=== PATIENT | female | born 1950 | race Caucasian/White ===

== ENCOUNTER 2017-09-16 08:19 | Outpatient (CLI) | payer OTHER ==
[~2017-09-16 08:19] MED LIST: CEFADROXIL500 MG PO; CLONAZEPAM2 MG PO; DICLOFENAC SODI50 MG PO; KLONOPIN1 MG/TAB; LEXAPRO20 MG PO; LEXAPRO5 MG; METFORMIN HCL1000 MG PO; METFORMIN HCL500 M1 PO; MICRONASE5 MG NGT; SYNTHROID50 MCG PO
== END 2017-09-16 08:36 | disposition home or self-care (01) ==
LOC: LAB 08:19
DX: K43.2 Incisional hernia without obstruction or gangrene (principal); Z01.812 Encounter for preprocedural laboratory examination

== ENCOUNTER → 2017-09-30 09:00 | Outpatient (CLI) | payer OTHER ==
[~2017-09-30] VITALS: Ht 152.4 cm; Wt 77.1 kg
[~2017-09-30 09:00] MED LIST changes: +[UNRECOGNIZED DRUG - OTHER]
== END | disposition home or self-care (01) ==
LOC: LAB 09:00 → SURG 09:00 → EDSTATUS 12:00 → SURG 12:00
DX: K43.2 Incisional hernia without obstruction or gangrene (principal); Z01.812 Encounter for preprocedural laboratory examination

== ENCOUNTER 2017-10-01 16:09 | Outpatient (CLI) | payer OTHER | END 2017-10-01 16:20 | disposition home or self-care (01) | LOC: LAB 16:09 | DX: N39.0 Urinary tract infection, site not specified (principal); R82.79 Other abnormal findings on microbiological examination of urine ==

== ENCOUNTER 2017-10-16 16:05 | Outpatient (CLI) | payer OTHER | END 2017-10-16 16:37 | disposition home or self-care (01) | LOC: LAB 16:05 | DX: N39.0 Urinary tract infection, site not specified (principal) ==

== ENCOUNTER 2017-11-18 10:34 | Outpatient (CLI) | payer OTHER | END 2017-11-18 10:39 | disposition home or self-care (01) | LOC: LAB 10:34 | DX: K43.2 Incisional hernia without obstruction or gangrene (principal); Z01.812 Encounter for preprocedural laboratory examination; E11.9 Type 2 diabetes mellitus without complications ==

== ENCOUNTER 2017-11-19 12:12 | Outpatient (CLI) | payer OTHER | END 2017-11-19 12:20 | disposition home or self-care (01) | LOC: LAB 12:12 | DX: N39.0 Urinary tract infection, site not specified (principal); R82.79 Other abnormal findings on microbiological examination of urine ==

== ENCOUNTER 2017-11-28 12:59 | Outpatient (CLI) | payer OTHER | END 2017-11-28 13:04 | disposition home or self-care (01) | LOC: LAB 12:59 | DX: N39.0 Urinary tract infection, site not specified (principal) ==

== ENCOUNTER 2017-12-11 07:00 | Day surgery (SDC) | payer OTHER ==
[~2017-12-11] VITALS: Ht 152.4 cm; Wt 77.1 kg
== END 2017-12-12 08:00 | disposition home or self-care (01) ==
LOC: CIR.AMB 07:00 → SURG 11:58 → O/R 11:58 → CIR.AMB 12-12 08:00 → O/R 12-12 11:52 → SURG 12-12 11:52
DX: K43.2 Incisional hernia without obstruction or gangrene (principal)

== ENCOUNTER 2018-01-20 08:38 | Emergency (ER) | payer OTHER ==
[~2018-01-20] VITALS: Ht 152.4 cm; Wt 76.2 kg
[~2018-01-20 08:38] MED LIST changes: +FORTAMET1000 MG; +GLIPIZIDE10 MG
[2018-01-20] MEDS ORDERED: CLONAZEPAM2 MG (09:02)
[2018-01-20] MEDS ORDERED: ULTRACET (09:02)
[2018-01-20] MEDS ORDERED: TAMS0.4C (09:02)
[2018-01-20] MEDS ORDERED: CEFTIN250 MG/5 M PO (09:03)
== END 2018-01-20 13:27 | disposition home or self-care (01) ==
LOC: ER 08:38
DX: N20.9 Urinary calculus, unspecified (principal)

== ENCOUNTER → 2018-03-20 10:58 | Outpatient (CLI) | payer OTHER ==
[~2018-03-20 10:58] MED LIST changes: +CEFTIN250 MG/5 M PO; +CLONAZEPAM2 MG; +TAMS0.4C; +ULTRACET
== END | disposition home or self-care (01) ==
LOC: LAB 10:58
DX: D64.89 Other specified anemias (principal); D68.8 Other specified coagulation defects; E78.01 Familial hypercholesterolemia; E03.8 Other specified hypothyroidism; R70.0 Elevated erythrocyte sedimentation rate; E11.9 Type 2 diabetes mellitus without complications; R80.8 Other proteinuria; N39.0 Urinary tract infection, site not specified

== ENCOUNTER 2018-04-20 16:22 | Emergency (ER) | payer OTHER ==
[~2018-04-20] VITALS: Ht 152.4 cm; Wt 76.7 kg
[2018-04-20] MEDS ORDERED: ACTOS15 MG (16:42)
[2018-04-20] MEDS ORDERED: LEXAPRO20 MG (16:43)
[2018-04-20] MEDS ORDERED: SYNTHROID50 MCG (16:45)
== END 2018-04-20 20:40 | disposition home or self-care (01) ==
LOC: ER 16:22
DX: M54.89 Other dorsalgia (principal); R06.02 Shortness of breath

== ENCOUNTER 2018-06-26 10:06 | Outpatient (CLI) | payer OTHER ==
[~2018-06-26 10:06] MED LIST changes: +ACTOS15 MG; +LEXAPRO20 MG; +SYNTHROID50 MCG
== END 2018-06-26 10:17 | disposition home or self-care (01) ==
LOC: LAB 10:06
DX: E11.65 Type 2 diabetes mellitus with hyperglycemia (principal); D50.8 Other iron deficiency anemias; R30.0 Dysuria; E78.2 Mixed hyperlipidemia; I10 Essential (primary) hypertension; C73 Malignant neoplasm of thyroid gland; E03.8 Other specified hypothyroidism; B96.29 Other Escherichia coli [E. coli] as the cause of diseases classified elsewhere

== ENCOUNTER 2018-07-02 15:22 | Emergency (ER) | payer OTHER ==
[~2018-07-02] VITALS: Ht 152.4 cm; Wt 77.1 kg
[2018-07-02] MEDS ORDERED: FORTAMET500 MG (15:35)
== END 2018-07-02 21:47 | disposition home or self-care (01) ==
LOC: ER 15:22
DX: K59.09 Other constipation (principal); N20.0 Calculus of kidney; N39.0 Urinary tract infection, site not specified; R10.11 Right upper quadrant pain

== ENCOUNTER 2018-10-20 15:16 | Outpatient (CLI) | payer OTHER ==
[~2018-10-20 15:16] MED LIST changes: +FORTAMET500 MG
== END 2018-10-20 15:19 | disposition home or self-care (01) ==
LOC: MAMO-SONO 15:16 → NUCLEAR 15:16 → MAMO-SONO 15:19
DX: Z12.31 Encounter for screening mammogram for malignant neoplasm of breast (principal); N63.10 Unspecified lump in the right breast, unspecified quadrant; N63.20 Unspecified lump in the left breast, unspecified quadrant; Z87.898 Personal history of other specified conditions; M81.0 Age-related osteoporosis without current pathological fracture

== ENCOUNTER → 2018-10-21 11:26 | Outpatient (CLI) | payer OTHER | END | disposition home or self-care (01) | LOC: LAB 11:26 | DX: E03.8 Other specified hypothyroidism (principal); I10 Essential (primary) hypertension; E11.9 Type 2 diabetes mellitus without complications; E78.00 Pure hypercholesterolemia, unspecified; N39.0 Urinary tract infection, site not specified; E11.69 Type 2 diabetes mellitus with other specified complication; E11.29 Type 2 diabetes mellitus with other diabetic kidney complication; Z12.31 Encounter for screening mammogram for malignant neoplasm of breast; R19.5 Other fecal abnormalities; E55.9 Vitamin D deficiency, unspecified; D64.89 Other specified anemias ==

== ENCOUNTER → 2018-10-27 | Outpatient (CLI) | payer OTHER | END | disposition home or self-care (01) | LOC: MAMO-SONO 14:23 → SONOGRAMA 14:28 | DX: E03.8 Other specified hypothyroidism (principal); J44.1 Chronic obstructive pulmonary disease with (acute) exacerbation; E04.1 Nontoxic single thyroid nodule ==

== ENCOUNTER 2018-12-08 21:14 | Emergency (ER) | payer OTHER ==
[~2018-12-08] VITALS: Ht 152.4 cm; Wt 81.2 kg
== END 2018-12-09 01:43 | disposition home or self-care (01) ==
LOC: ER 21:14
DX: E11.65 Type 2 diabetes mellitus with hyperglycemia (principal); N39.0 Urinary tract infection, site not specified; B96.1 Klebsiella pneumoniae [K. pneumoniae] as the cause of diseases classified elsewhere

== ENCOUNTER 2019-02-14 13:06 | Emergency (ER) | payer OTHER ==
[~2019-02-14] VITALS: Ht 152.4 cm; Wt 81.2 kg
== END 2019-02-14 19:01 | disposition home or self-care (01) ==
LOC: ER 13:06
DX: E11.69 Type 2 diabetes mellitus with other specified complication (principal); R81 Glycosuria; N39.0 Urinary tract infection, site not specified; Z79.84 Long term (current) use of oral hypoglycemic drugs

== ENCOUNTER 2019-02-15 12:22 | Outpatient (CLI) | payer OTHER | END 2019-02-15 12:27 | disposition home or self-care (01) | LOC: LAB 12:22 | DX: E11.9 Type 2 diabetes mellitus without complications (principal); E03.8 Other specified hypothyroidism ==

== ENCOUNTER 2019-03-10 14:28 | Emergency (ER) | payer OTHER ==
[~2019-03-10] VITALS: Ht 152.4 cm; Wt 79.4 kg
== END 2019-03-10 19:25 | disposition home or self-care (01) ==
LOC: ER 14:28
DX: E11.65 Type 2 diabetes mellitus with hyperglycemia (principal); Z79.84 Long term (current) use of oral hypoglycemic drugs

== ENCOUNTER 2019-07-17 12:23 | Outpatient (CLI) | payer OTHER | END 2019-07-17 15:00 | disposition home or self-care (01) | LOC: LAB 12:23 | DX: D64.89 Other specified anemias (principal); I10 Essential (primary) hypertension; E11.9 Type 2 diabetes mellitus without complications; E78.00 Pure hypercholesterolemia, unspecified; N39.0 Urinary tract infection, site not specified; E03.8 Other specified hypothyroidism; E55.9 Vitamin D deficiency, unspecified; R80.8 Other proteinuria; R19.5 Other fecal abnormalities ==

== ENCOUNTER 2019-07-18 13:15 | Outpatient (CLI) | payer OTHER | END 2019-07-18 15:00 | disposition home or self-care (01) | LOC: LAB 13:15 | DX: D64.89 Other specified anemias (principal); E11.9 Type 2 diabetes mellitus without complications; I10 Essential (primary) hypertension; N39.0 Urinary tract infection, site not specified; E03.8 Other specified hypothyroidism; E55.9 Vitamin D deficiency, unspecified; R80.8 Other proteinuria; R19.5 Other fecal abnormalities ==

== ENCOUNTER 2019-11-30 12:29 | Outpatient (CLI) | payer OTHER | END 2019-11-30 12:52 | disposition home or self-care (01) | LOC: LAB 12:29 | PROVIDERS: ATTEND Internal Medicine | DX: D64.89 Other specified anemias (principal); I10 Essential (primary) hypertension; E11.9 Type 2 diabetes mellitus without complications; E78.00 Pure hypercholesterolemia, unspecified; N39.0 Urinary tract infection, site not specified; E03.8 Other specified hypothyroidism; E55.9 Vitamin D deficiency, unspecified; R80.8 Other proteinuria; Z12.11 Encounter for screening for malignant neoplasm of colon; R19.5 Other fecal abnormalities ==

== ENCOUNTER 2020-03-13 16:00 | Outpatient (CLI) | payer OTHER | END 2020-03-13 16:18 | disposition home or self-care (01) | LOC: RAD 16:00 | PROVIDERS: ATTEND Internal Medicine | DX: M54.5 Low back pain (principal); N20.0 Calculus of kidney ==

== ENCOUNTER 2020-03-21 13:33 | Outpatient (CLI) | payer OTHER | END 2020-03-21 14:25 | disposition home or self-care (01) | LOC: MRI 13:33 | PROVIDERS: ATTEND Internal Medicine | DX: M47.897 Other spondylosis, lumbosacral region (principal); M54.5 Low back pain | CPT/HCPCS: 72148 ==

== ENCOUNTER → 2020-06-28 16:33 | Outpatient (CLI) | payer OTHER | END | disposition home or self-care (01) | LOC: RAD 16:33 → LAB 16:33 | PROVIDERS: ATTEND Physical Medicine & Rehabilitation | DX: M43.8X4 Other specified deforming dorsopathies, thoracic region (principal); M54.2 Cervicalgia; M54.6 Pain in thoracic spine; M25.511 Pain in right shoulder; M25.512 Pain in left shoulder ==

== ENCOUNTER 2020-07-05 14:01 | Outpatient (CLI) | payer OTHER | END 2020-07-05 14:08 | disposition home or self-care (01) | LOC: LAB 14:01 | PROVIDERS: ATTEND Internal Medicine | DX: D64.89 Other specified anemias (principal); I10 Essential (primary) hypertension; E78.00 Pure hypercholesterolemia, unspecified; N39.0 Urinary tract infection, site not specified; E03.8 Other specified hypothyroidism; E11.69 Type 2 diabetes mellitus with other specified complication; R19.5 Other fecal abnormalities; E55.9 Vitamin D deficiency, unspecified ==

== ENCOUNTER 2020-07-06 14:30 | Outpatient (CLI) | payer OTHER | END 2020-07-06 14:34 | disposition home or self-care (01) | LOC: SONOGRAMA 14:30 | PROVIDERS: ATTEND Physical Medicine & Rehabilitation | DX: M25.511 Pain in right shoulder (principal) ==

== ENCOUNTER 2020-07-07 14:29 | Outpatient (CLI) | payer OTHER | END 2020-07-07 14:35 | disposition home or self-care (01) | LOC: LAB 14:29 | PROVIDERS: ATTEND Internal Medicine | DX: D64.89 Other specified anemias (principal); I10 Essential (primary) hypertension; E78.00 Pure hypercholesterolemia, unspecified; N39.0 Urinary tract infection, site not specified; E03.8 Other specified hypothyroidism; E11.69 Type 2 diabetes mellitus with other specified complication; R80.8 Other proteinuria; E55.9 Vitamin D deficiency, unspecified; R19.5 Other fecal abnormalities ==

== ENCOUNTER 2020-11-03 14:23 | Outpatient (CLI) | payer OTHER | END 2020-11-03 14:30 | disposition home or self-care (01) | LOC: MAMO-SONO 14:23 | PROVIDERS: ATTEND Internal Medicine | DX: Z12.31 Encounter for screening mammogram for malignant neoplasm of breast (principal) ==

== ENCOUNTER → 2020-11-07 13:49 | Outpatient (CLI) | payer OTHER ==
[~2020-11-07 13:49] MED LIST changes: +SIMVASTATIN5 MG
== END | disposition home or self-care (01) ==
LOC: LAB 13:49
PROVIDERS: ATTEND Internal Medicine
DX: D64.9 Anemia, unspecified (principal); E11.9 Type 2 diabetes mellitus without complications; N39.0 Urinary tract infection, site not specified; E03.8 Other specified hypothyroidism; E78.00 Pure hypercholesterolemia, unspecified

== ENCOUNTER 2021-01-26 19:13 | Emergency (ER) | payer OTHER ==
[~2021-01-26] VITALS: Ht 152.4 cm; Wt 74.8 kg
[~2021-01-26 19:13] MED LIST changes: -SIMVASTATIN5 MG
[2021-01-26] MEDS ORDERED: SIMVASTATIN5 MG (19:31)
== END 2021-01-26 22:55 | disposition home or self-care (01) ==
LOC: ER 19:13
DX: N39.0 Urinary tract infection, site not specified (principal); E86.0 Dehydration; R53.1 Weakness; F06.4 Anxiety disorder due to known physiological condition

== ENCOUNTER 2021-02-06 08:31 | Outpatient (CLI) | payer OTHER ==
[~2021-02-06 08:31] MED LIST changes: +SIMVASTATIN5 MG
== END 2021-02-06 08:34 | disposition home or self-care (01) ==
LOC: LAB 08:31
PROVIDERS: ATTEND Internal Medicine
DX: N39.0 Urinary tract infection, site not specified (principal); E11.69 Type 2 diabetes mellitus with other specified complication

== ENCOUNTER 2021-03-01 16:53 | Emergency (ER) | payer OTHER ==
[~2021-03-01] VITALS: Ht 152.4 cm; Wt 72.6 kg
== END 2021-03-01 22:26 | disposition home or self-care (01) ==
LOC: ER 16:53
DX: S90.31XA Contusion of right foot, initial encounter (principal); W18.09XA Striking against other object with subsequent fall, initial encounter; Y93.89 Activity, other specified; Y92.098 Other place in other non-institutional residence as the place of occurrence of the external cause; Y99.8 Other external cause status; E11.65 Type 2 diabetes mellitus with hyperglycemia

== ENCOUNTER 2021-03-11 16:59 | Emergency (ER) | payer OTHER ==
[~2021-03-11] VITALS: Ht 152.4 cm; Wt 74.8 kg
[2021-03-11] MEDS ORDERED: JANUMET 50-5001 EACH (17:28)
== END 2021-03-11 20:40 | disposition home or self-care (01) ==
LOC: ER 16:59
DX: E11.65 Type 2 diabetes mellitus with hyperglycemia (principal)

== ENCOUNTER 2021-07-03 14:34 | Outpatient (CLI) | payer OTHER ==
[~2021-07-03 14:34] MED LIST changes: +JANUMET 50-5001 EACH
== END 2021-07-03 14:42 | disposition home or self-care (01) ==
LOC: LAB 14:34
PROVIDERS: ATTEND Internal Medicine
DX: E03.8 Other specified hypothyroidism (principal); N18.1 Chronic kidney disease, stage 1; E11.69 Type 2 diabetes mellitus with other specified complication; E78.00 Pure hypercholesterolemia, unspecified; D50.0 Iron deficiency anemia secondary to blood loss (chronic); N39.0 Urinary tract infection, site not specified

== ENCOUNTER 2021-09-06 19:35 | Emergency (ER) | payer OTHER ==
[~2021-09-06] VITALS: Ht 152.4 cm; Wt 72.1 kg
== END 2021-09-06 23:17 | disposition home or self-care (01) ==
LOC: ER 19:35
DX: R10.31 Right lower quadrant pain (principal); E11.9 Type 2 diabetes mellitus without complications; Z79.84 Long term (current) use of oral hypoglycemic drugs; Z88.6 Allergy status to analgesic agent

== ENCOUNTER 2021-12-25 08:59 | Outpatient (CLI) | payer OTHER | END 2021-12-25 09:00 | disposition home or self-care (01) | LOC: LAB 08:59 | PROVIDERS: ATTEND Internal Medicine | DX: E11.69 Type 2 diabetes mellitus with other specified complication (principal); E78.00 Pure hypercholesterolemia, unspecified; E03.8 Other specified hypothyroidism; D50.0 Iron deficiency anemia secondary to blood loss (chronic); N39.0 Urinary tract infection, site not specified; N18.2 Chronic kidney disease, stage 2 (mild) ==

== ENCOUNTER 2022-01-01 15:16 | Outpatient (CLI) | payer OTHER | END 2022-01-01 15:30 | disposition home or self-care (01) | LOC: LAB 15:16 | PROVIDERS: ATTEND Internal Medicine | DX: E11.69 Type 2 diabetes mellitus with other specified complication (principal); E78.00 Pure hypercholesterolemia, unspecified; D50.0 Iron deficiency anemia secondary to blood loss (chronic); N39.0 Urinary tract infection, site not specified; N18.2 Chronic kidney disease, stage 2 (mild) ==

== ENCOUNTER 2022-03-03 15:31 | Emergency (ER) | payer OTHER ==
[~2022-03-03] VITALS: Ht 152.4 cm; Wt 77.1 kg
[2022-03-03] MEDS ORDERED: JARDIANCE10 MG (15:58)
== END 2022-03-03 20:50 | disposition home or self-care (01) ==
LOC: ER 15:31
DX: M54.50 Low back pain, unspecified (principal); Z88.6 Allergy status to analgesic agent; Z87.442 Personal history of urinary calculi

== ENCOUNTER 2022-08-07 12:13 | Outpatient (CLI) | payer OTHER ==
[~2022-08-07 12:13] MED LIST changes: +JARDIANCE10 MG
== END 2022-08-07 14:17 | disposition home or self-care (01) ==
LOC: LAB 12:13
PROVIDERS: ATTEND Internal Medicine
DX: D64.9 Anemia, unspecified (principal); E11.9 Type 2 diabetes mellitus without complications; E78.00 Pure hypercholesterolemia, unspecified; N39.0 Urinary tract infection, site not specified; E03.8 Other specified hypothyroidism; R19.5 Other fecal abnormalities; Z12.11 Encounter for screening for malignant neoplasm of colon; E55.9 Vitamin D deficiency, unspecified; E53.8 Deficiency of other specified B group vitamins; R41.2 Retrograde amnesia; R10.9 Unspecified abdominal pain; R41.3 Other amnesia; N18.9 Chronic kidney disease, unspecified

== ENCOUNTER 2022-09-26 14:39 | Outpatient (CLI) | payer OTHER | END 2022-09-26 14:57 | disposition home or self-care (01) | LOC: MAMO-SONO 14:39 | PROVIDERS: ATTEND Internal Medicine | DX: Z12.31 Encounter for screening mammogram for malignant neoplasm of breast (principal); N64.4 Mastodynia; N60.11 Diffuse cystic mastopathy of right breast ==

== ENCOUNTER 2022-11-21 11:29 | Outpatient (CLI) | payer OTHER | END 2022-11-21 11:34 | disposition home or self-care (01) | LOC: LAB 11:29 | PROVIDERS: ATTEND Internal Medicine | DX: D64.9 Anemia, unspecified (principal); E11.9 Type 2 diabetes mellitus without complications; E78.00 Pure hypercholesterolemia, unspecified; N39.0 Urinary tract infection, site not specified; E03.8 Other specified hypothyroidism ==

== ENCOUNTER 2023-02-04 18:05 | Emergency (ER) | payer OTHER ==
[~2023-02-04] VITALS: Ht 152.4 cm; Wt 62.1 kg
[2023-02-05] MEDS ORDERED: ONDANSETRON ODT4 MG PO (03:55)
[2023-02-05] MEDS ORDERED: PROTONIX40 MG PO (03:55)
[2023-02-05] MEDS ORDERED: LEVSIN/SL0.125 MG SL (03:55)
[2023-02-05] MEDS ORDERED: PEPCID40 MG PO (03:55)
== END 2023-02-05 04:04 ==
LOC: ER 18:05
PROVIDERS: Emergency Medicine
DX: K52.9 Noninfective gastroenteritis and colitis, unspecified (principal); E11.9 Type 2 diabetes mellitus without complications; Z79.84 Long term (current) use of oral hypoglycemic drugs; Z88.6 Allergy status to analgesic agent; E03.9 Hypothyroidism, unspecified; E78.00 Pure hypercholesterolemia, unspecified; K29.70 Gastritis, unspecified, without bleeding
CPT/HCPCS: 36415; 96365; 96366; 99284; J3490; J7030

== ENCOUNTER 2023-05-06 14:18 | Outpatient (CLI) | payer OTHER ==
[~2023-05-06 14:18] MED LIST changes: +LEVSIN/SL0.125 MG SL; +ONDANSETRON ODT4 MG PO; +PEPCID40 MG PO; +PROTONIX40 MG PO
[2023-05-06 15:15] LABS: URINE APPEARANCE Clear; URINE BILIRRUBIN Negative (NEGATIVE); URINE BLOOD Negative; URINE COLOR Yellow; URINE LEUKOCYTE Negative; URINE NITRATE Negative; URINE PROTEIN Negative (NEGATIVE)
[2023-05-06 15:17] LABS: HEMATOCRIT 39.7 % (36.0-45.00); HEMOGLOBIN 13.3 g/dL (12.0-15.00); MEAN CELL VOLUME 87.8 fL (80.00-100.00); MEAN CORPUSCULAR HEMOGLOBIN 29.3 pg (27.00-32.0); MEAN CORPUSCULAR HGB CONC 33.4 g/dl (32.0-36.0); PLATELET COUNT 232 K/uL (150-450); RED BLOOD COUNT 4.53 M/uL (4.00-6.00); RED CELL DISTRIBUTION WIDTH 13.5 % (11.5-14.5)
[2023-05-06 15:19] LABS: URINE BACTERIA 347.7 uL (0.0-1933); URINE EPITHELIAL CELLS 51.6 uL (0.0-38.8); URINE WBC 130.7 uL (0.0-23.2)
[2023-05-06 15:44] LABS: ALBUMIN 3.5 gm/dL (3.4-5.0); BILIRUBIN TOTAL 0.4 mg/dL (0.3-1.2); CALCIUM 9.1 mg/dL (8.5-10.1); CHOL HDL RATIO 2.2 (0-5.0); CREATININE SERUM 0.66 mg/dL (0.55-1.02); GFR 87.79; GLOBULINA 3.3 G/DL (2.4-3.5); POTASSIUM 4.06 mEq/L (3.5-5.1); TOTAL PROTEIN 6.8 gm/dL (6.4-8.2)
[2023-05-06 15:44] LABS: URINE GLUCOSE >=1000 MG/DL (NEGATIVE)
== END 2023-05-06 15:00 | disposition home or self-care (01) ==
LOC: LAB 14:18
PROVIDERS: ATTEND Internal Medicine
DX: D64.9 Anemia, unspecified (principal); E11.9 Type 2 diabetes mellitus without complications; E78.00 Pure hypercholesterolemia, unspecified; N39.0 Urinary tract infection, site not specified; N18.31 Chronic kidney disease, stage 3a

== ENCOUNTER → 2023-07-02 12:16 | Outpatient (CLI) | payer OTHER ==
[2023-07-02 13:12] LABS: HEMOGLOBIN 14.3 g/dL (12.0-15.00); MEAN CELL VOLUME 87.2 fL (80.00-100.00); MEAN CORPUSCULAR HEMOGLOBIN 30.5 pg (27.00-32.0); MEAN CORPUSCULAR HGB CONC 34.9 g/dl (32.0-36.0); PLATELET COUNT 259 K/uL (150-450); RED CELL DISTRIBUTION WIDTH 13.6 % (11.5-14.5)
[2023-07-02 13:21] LABS: PH,URINE 5.5 (5.0-8.0); URINE APPEARANCE Clear; URINE BILIRRUBIN Negative (NEGATIVE); URINE BLOOD Negative; URINE COLOR Yellow; URINE LEUKOCYTE Small; URINE NITRATE Negative; URINE PROTEIN Negative (NEGATIVE)
[2023-07-02 13:29] LABS: URINE BACTERIA 40.3 uL (0.0-1933); URINE EPITHELIAL CELLS 7.4 uL (0.0-38.8); URINE RBC 44.1 uL (0.0-20.8); URINE WBC 22.4 uL (0.0-23.2)
[2023-07-02 13:44] LABS: ALBUMIN 3.8 gm/dL (3.4-5.0); BILIRUBIN TOTAL 0.48 mg/dL (0.3-1.2); CALCIUM 9.5 mg/dL (8.5-10.1); CREATININE SERUM 0.76 mg/dL (0.55-1.02); GFR 74.39; GLOBULINA 3.3 G/DL (2.4-3.5); POTASSIUM 3.97 mEq/L (3.5-5.1); TOTAL PROTEIN 7.1 gm/dL (6.4-8.2)
[2023-07-02 14:01] LABS: URINE GLUCOSE >=1000 MG/DL (NEGATIVE)
[2023-07-02 14:04] LABS: TSH 3.61 uIU/mL (0.358-3.74)
[2023-07-02 14:50] LABS: ob NEGATIVE (NEGATIVE)
== END | disposition home or self-care (01) ==
LOC: LAB 12:16
PROVIDERS: ATTEND Internal Medicine
DX: D64.9 Anemia, unspecified (principal); E11.9 Type 2 diabetes mellitus without complications; E78.00 Pure hypercholesterolemia, unspecified; N39.0 Urinary tract infection, site not specified; Z12.11 Encounter for screening for malignant neoplasm of colon; E55.9 Vitamin D deficiency, unspecified

== ENCOUNTER 2023-08-13 13:03 | Outpatient (CLI) | payer OTHER | END 2023-08-13 13:07 | disposition home or self-care (01) | LOC: SONOGRAMA 13:03 | PROVIDERS: ATTEND Internal Medicine Gastroenterology | DX: R10.13 Epigastric pain (principal) ==

== ENCOUNTER → 2024-02-20 | Emergency (ER) | payer OTHER ==
[~2024-02-20] VITALS: Ht 152.4 cm; Wt 61.2 kg
[2024-02-20 14:50] LABS: HEMATOCRIT 39.7 % (36.0-45.00); HEMOGLOBIN 13.6 g/dL (12.0-15.00); MEAN CELL VOLUME 85.9 fL (80.00-100.00); MEAN CORPUSCULAR HEMOGLOBIN 29.3 pg (27.00-32.0); MEAN CORPUSCULAR HGB CONC 34.1 g/dl (32.0-36.0); PLATELET COUNT 238 K/uL (150-450); RED BLOOD COUNT 4.62 M/uL (4.00-6.00); RED CELL DISTRIBUTION WIDTH 13.6 % (11.5-14.5)
[2024-02-20 15:11] LABS: CALCIUM 9.8 mg/dL (8.5-10.1); CREATININE SERUM 0.93 mg/dL (0.55-1.02); GFR 58.93; POTASSIUM 4.02 mEq/L (3.5-5.1)
[2024-02-20 15:16] LABS: URINE APPEARANCE Clear; URINE BILIRRUBIN Negative (NEGATIVE); URINE BLOOD Negative; URINE COLOR Yellow; URINE KETONE Negative (NEGATIVE); URINE LEUKOCYTE Negative; URINE NITRATE Negative; URINE PROTEIN Negative (NEGATIVE); URINE UROBILINOGEN 0.2 E.U./dl
[2024-02-20 15:19] LABS: URINE BACTERIA 132.2 uL (0.0-1933); URINE RBC 5.9 uL (0.0-20.8); URINE WBC 19.4 uL (0.0-23.2)
[2024-02-20 15:21] LABS: URINE GLUCOSE >=1000 MG/DL (NEGATIVE)
== END | disposition left against medical advice (07) ==
LOC: ER 13:23
PROVIDERS: General Practice
DX: G44.84 Primary exertional headache (principal); T67.02XA Exertional heatstroke, initial encounter; Z88.6 Allergy status to analgesic agent; R53.1 Weakness; E11.9 Type 2 diabetes mellitus without complications; Z79.84 Long term (current) use of oral hypoglycemic drugs

== ENCOUNTER 2024-03-01 10:51 | Outpatient (CLI) | payer OTHER ==
[2024-03-01 11:53] LABS: HEMATOCRIT 41.3 % (36.0-45.00); MEAN CELL VOLUME 86.5 fL (80.00-100.00); MEAN CORPUSCULAR HEMOGLOBIN 29.3 pg (27.00-32.0); MEAN CORPUSCULAR HGB CONC 33.9 g/dl (32.0-36.0); PLATELET COUNT 246 K/uL (150-450); RED BLOOD COUNT 4.77 M/uL (4.00-6.00)
[2024-03-01 12:29] LABS: BILIRUBIN TOTAL 0.52 mg/dL (0.3-1.2); CALCIUM 9.7 mg/dL (8.5-10.1); CREATININE SERUM 0.84 mg/dL (0.55-1.02); GFR 66.28; GLOBULINA 3.6 G/DL (2.4-3.5); POTASSIUM 4.5 mEq/L (3.5-5.1); TOTAL PROTEIN 7.6 gm/dL (6.4-8.2)
[2024-03-01 12:34] LABS: INR 1.07; PARTIAL THROMBOPLASTIN TIME 29.3 SECONDS (22.0-34.0); PROTHROMBIN TIME 11.6 SECONDS (9.0-11.5)
== END 2024-03-01 11:00 | disposition home or self-care (01) ==
LOC: RAD 10:51
PROVIDERS: ATTEND Ophthalmology
DX: Z01.811 Encounter for preprocedural respiratory examination (principal); H25.013 Cortical age-related cataract, bilateral; I10 Essential (primary) hypertension

== ENCOUNTER 2024-05-13 16:06 | Outpatient (CLI) | payer OTHER | END 2024-05-13 16:15 | disposition home or self-care (01) | LOC: RAD 16:06 | PROVIDERS: ATTEND Physical Medicine & Rehabilitation | DX: M54.2 Cervicalgia (principal); M54.6 Pain in thoracic spine ==

== ENCOUNTER 2024-07-08 11:56 | Outpatient (CLI) | payer OTHER ==
[2024-07-08 12:34] LABS: HEMATOCRIT 40.6 % (36.0-45.00); HEMOGLOBIN 13.6 g/dL (12.0-15.00); MEAN CELL VOLUME 87.1 fL (80.00-100.00); MEAN CORPUSCULAR HEMOGLOBIN 29.2 pg (27.00-32.0); MEAN CORPUSCULAR HGB CONC 33.5 g/dl (32.0-36.0); PLATELET COUNT 252 K/uL (150-450); RED BLOOD COUNT 4.66 M/uL (4.00-6.00); RED CELL DISTRIBUTION WIDTH 13.6 % (11.5-14.5)
[2024-07-08 13:27] LABS: ALBUMIN 3.5 gm/dL (3.4-5.0); BILIRUBIN TOTAL 0.36 mg/dL (0.3-1.2); CALCIUM 9.7 mg/dL (8.5-10.1); CHOL HDL RATIO 2.3 (0-5.0); CREATININE SERUM 0.76 mg/dL (0.55-1.02); GFR 74.19; GLOBULINA 3.5 G/DL (2.4-3.5); POTASSIUM 4.31 mEq/L (3.5-5.1)
[2024-07-08 13:33] LABS: TSH 3.16 uIU/mL (0.358-3.74)
[2024-07-08 13:56] LABS: URINE APPEARANCE Turbid; URINE BILIRRUBIN Negative (NEGATIVE); URINE BLOOD Negative; URINE COLOR Yellow; URINE KETONE Negative (NEGATIVE); URINE LEUKOCYTE Trace; URINE NITRATE Negative; URINE PROTEIN Negative (NEGATIVE); URINE UROBILINOGEN 0.2 E.U./dl
[2024-07-08 14:01] LABS: URINE BACTERIA 294.9 uL (0.0-1933); URINE EPITHELIAL CELLS 74.8 uL (0.0-38.8); URINE RBC 19.4 uL (0.0-20.8); URINE WBC 80.4 uL (0.0-23.2)
[2024-07-08 14:03] LABS: ob NEGATIVE (NEGATIVE)
[2024-07-08 14:29] LABS: URINE CAST 0.58 uL (0.0-1.40); URINE GLUCOSE >=1000 MG/DL (NEGATIVE)
[2024-07-08 14:33] LABS: URINE YEAST FEW /hpf
== END 2024-07-08 11:57 | disposition home or self-care (01) ==
LOC: LAB 11:56
PROVIDERS: ATTEND Internal Medicine
DX: D64.9 Anemia, unspecified (principal); E11.9 Type 2 diabetes mellitus without complications; E78.00 Pure hypercholesterolemia, unspecified; N39.0 Urinary tract infection, site not specified; E03.8 Other specified hypothyroidism; N18.31 Chronic kidney disease, stage 3a; Z12.11 Encounter for screening for malignant neoplasm of colon; E55.9 Vitamin D deficiency, unspecified

== ENCOUNTER 2024-07-14 13:29 | Outpatient (CLI) | payer OTHER | END 2024-07-14 13:30 | disposition home or self-care (01) | LOC: LAB 13:29 | PROVIDERS: ATTEND Internal Medicine | DX: N39.0 Urinary tract infection, site not specified (principal) ==

== ENCOUNTER 2024-07-14 13:57 | Outpatient (CLI) | payer OTHER | END 2024-07-14 13:59 | disposition home or self-care (01) | LOC: RAD 13:57 | PROVIDERS: ATTEND Internal Medicine | DX: M15.0 Primary generalized (osteo)arthritis (principal) ==

== ENCOUNTER 2024-08-06 12:48 | Outpatient (CLI) | payer OTHER | END 2024-08-06 12:49 | disposition home or self-care (01) | LOC: NUCLEAR 12:48 | PROVIDERS: ATTEND Physical Medicine & Rehabilitation | DX: M81.0 Age-related osteoporosis without current pathological fracture (principal) ==

== ENCOUNTER 2024-09-10 13:07 | Outpatient (CLI) | payer OTHER | END 2024-09-10 13:10 | disposition home or self-care (01) | LOC: RAD 13:07 | PROVIDERS: ATTEND Physical Medicine & Rehabilitation | DX: M17.11 Unilateral primary osteoarthritis, right knee (principal); M17.12 Unilateral primary osteoarthritis, left knee ==

== ENCOUNTER 2024-12-14 15:08 | Outpatient (CLI) | payer OTHER ==
[2024-12-14 15:42] LABS: BASO % 0.8 % (0.1-1.2); EOS # 0.16 (0.04-0.54); EOS % 2.2 % (0.7-7.0); LYMPH # 2.55 (1.18-3.74); LYMPH % 35.8 % (19.3-53.1); MEAN PLATELET VOLUME 9.80 fl (9.4-12.4); MONO # 0.50 (0.24-0.82); MONO % 7.0 % (4.7-12.5); NEUT # 3.84 (1.56-6.13); NEUT % 53.9 % (34.0-71.1); RED CELL DISTRIBUTION WIDTH 12.6 % (11.6-14.4)
[2024-12-14 16:32] LABS: ALT/SGPT 21.0 U/L (12-78); AST/SGOT 16.0 U/L (15-37); BILIRUBIN TOTAL 0.47 mg/dL (0.3-1.2); BUN CREA RATIO 19.0 (7.0-25.0); CHOL HDL RATIO 2.3 (0-5.0); CREATININE SERUM 0.75 mg/dL (0.55-1.02); GFR 75.33; GLOBULINA 3.2 G/DL (2.4-3.5); GLUCOSE FASTING 141.0 mg/dL (65-100); HDL 62.0 mg/dl (40-60); LDL 42.0 mg/dl (0-130); OSMOLALITY SERUM 284.0 MOSM/KG (275-295); T4 FREE 0.93 NG/ML (0.76-1.46); VLDL 39.0 (0-39)
[2024-12-14 16:41] LABS: URINE APPEARANCE Clear; URINE BILIRRUBIN Negative (NEGATIVE); URINE BLOOD Negative; URINE COLOR Yellow; URINE KETONE Negative (NEGATIVE); URINE LEUKOCYTE Trace; URINE NITRATE Negative; URINE PROTEIN Negative (NEGATIVE); URINE UROBILINOGEN 0.2 E.U./dl
[2024-12-14 16:45] LABS: URINE BACTERIA 470.4 uL (0.0-1933); URINE EPITHELIAL CELLS 19.8 uL (0.0-38.8); URINE RBC 13.1 uL (0.0-20.8); URINE WBC 40.7 uL (0.0-23.2)
[2024-12-14 16:46] LABS: TSH 8.12 uIU/mL (0.358-3.74)
[2024-12-14 16:49] LABS: URINE CAST 0.14 uL (0.0-1.40); URINE GLUCOSE >=1000 MG/DL (NEGATIVE)
== END 2024-12-14 15:10 | disposition home or self-care (01) ==
LOC: LAB 15:08
PROVIDERS: ATTEND Internal Medicine
DX: E11.65 Type 2 diabetes mellitus with hyperglycemia (principal); E03.8 Other specified hypothyroidism; E78.5 Hyperlipidemia, unspecified; I10 Essential (primary) hypertension; N30.91 Cystitis, unspecified with hematuria

== ENCOUNTER 2025-05-31 12:28 | Outpatient (CLI) | payer OTHER ==
[2025-05-31 13:07] LABS: URINE APPEARANCE Clear; URINE BILIRRUBIN Negative (NEGATIVE); URINE BLOOD Trace; URINE COLOR Yellow; URINE KETONE Trace (NEGATIVE); URINE LEUKOCYTE Trace; URINE NITRATE Negative; URINE PROTEIN Negative (NEGATIVE); URINE UROBILINOGEN 0.2 E.U./dl
[2025-05-31 13:08] LABS: BASO % 0.5 % (0.1-1.2); EOS # 0.13 (0.04-0.54); EOS % 1.7 % (0.7-7.0); LYMPH # 2.39 (1.18-3.74); LYMPH % 30.6 % (19.3-53.1); MEAN PLATELET VOLUME 9.80 fl (9.4-12.4); MONO # 0.60 (0.24-0.82); MONO % 7.7 % (4.7-12.5); NEUT # 4.64 (1.56-6.13); NEUT % 59.2 % (34.0-71.1); RED CELL DISTRIBUTION WIDTH 12.5 % (11.6-14.4)
[2025-05-31 13:10] LABS: URINE BACTERIA 1237.7 uL (0.0-1933); URINE EPITHELIAL CELLS 50.8 uL (0.0-38.8); URINE RBC 10.6 uL (0.0-20.8); URINE WBC 181.1 uL (0.0-23.2)
[2025-05-31 13:25] LABS: URINE CAST 0.42 uL (0.0-1.40); URINE GLUCOSE >=1000 MG/DL (NEGATIVE)
[2025-05-31 13:26] LABS: TYPE CELLS SQUAMOUS
[2025-05-31 14:18] LABS: ALT/SGPT 18.0 U/L (12-78); AST/SGOT 13.0 U/L (15-37); BILIRUBIN TOTAL 0.29 mg/dL (0.3-1.2); BUN CREA RATIO 29.0 (7.0-25.0); CHOL HDL RATIO 2.0 (0-5.0); CREATININE SERUM 0.83 mg/dL (0.55-1.02); GFR 67.02; GLOBULINA 3.6 G/DL (2.4-3.5); GLUCOSE FASTING 153.0 mg/dL (65-100); HDL 68.0 mg/dl (40-60); LDL 46.0 mg/dl (0-130); OSMOLALITY SERUM 290.0 MOSM/KG (275-295); T4 FREE 0.88 NG/ML (0.76-1.46); TSH 4.03 uIU/mL (0.358-3.74); VLDL 24.0 (0-39)
== END 2025-05-31 12:34 | disposition home or self-care (01) ==
LOC: LAB 12:28
PROVIDERS: ATTEND Internal Medicine
DX: E11.65 Type 2 diabetes mellitus with hyperglycemia (principal); E78.5 Hyperlipidemia, unspecified; E03.8 Other specified hypothyroidism; I10 Essential (primary) hypertension

== ENCOUNTER 2025-06-03 16:57 | Emergency (ER) | payer OTHER ==
[~2025-06-03] VITALS: Ht 152.4 cm; Wt 61.7 kg
[2025-06-03 20:30] LABS: BASO % 0.4 % (0.1-1.2); EOS # 0.11 (0.04-0.54); EOS % 1.5 % (0.7-7.0); LYMPH # 2.44 (1.18-3.74); LYMPH % 32.7 % (19.3-53.1); MEAN PLATELET VOLUME 9.70 fl (9.4-12.4); MONO # 0.52 (0.24-0.82); MONO % 7.0 % (4.7-12.5); NEUT # 4.35 (1.56-6.13); NEUT % 58.1 % (34.0-71.1); RED CELL DISTRIBUTION WIDTH 12.4 % (11.6-14.4)
[2025-06-03 20:58] LABS: ALT/SGPT 20.0 U/L (12-78); AST/SGOT 14.0 U/L (15-37); BILIRUBIN TOTAL 0.25 mg/dL (0.3-1.2); BUN CREA RATIO 25.0 (7.0-25.0); CREATININE SERUM 0.85 mg/dL (0.55-1.02); GFR 65.2; GLOBULINA 3.9 G/DL (2.4-3.5); GLUCOSE FASTING 190.0 mg/dL (65-100); OSMOLALITY SERUM 291.0 MOSM/KG (275-295)
[2025-06-03 21:53] LABS: URINE APPEARANCE Clear; URINE BILIRRUBIN Negative (NEGATIVE); URINE BLOOD Negative; URINE COLOR Yellow; URINE KETONE Negative (NEGATIVE); URINE LEUKOCYTE Negative; URINE NITRATE Negative; URINE PROTEIN Negative (NEGATIVE); URINE UROBILINOGEN 0.2 E.U./dl
[2025-06-03 21:58] LABS: URINE BACTERIA 335.0 uL (0.0-1933); URINE EPITHELIAL CELLS 10.1 uL (0.0-38.8); URINE RBC 6.6 uL (0.0-20.8); URINE WBC 44.7 uL (0.0-23.2)
[2025-06-03 22:01] LABS: URINE CAST 0.28 uL (0.0-1.40); URINE GLUCOSE >=1000 MG/DL (NEGATIVE)
[2025-06-03] MEDS ORDERED: MACROBID 100 M100 MG PO (22:09)
[2025-06-03] MEDS ORDERED: CEFTRIAXONE SODIUM 1,000 MG VIAL IV ONE (22:15)
== END 2025-06-03 22:33 | disposition home or self-care (01) ==
LOC: ER 16:58
PROVIDERS: Preventive Medicine Public Health & General Preventive Medicine
DX: N39.0 Urinary tract infection, site not specified (principal); Z88.6 Allergy status to analgesic agent; E03.8 Other specified hypothyroidism; E11.9 Type 2 diabetes mellitus without complications
CPT/HCPCS: 96365; 99282; J0696